=== PATIENT | female | born 1965 | race Caucasian/White ===

== ENCOUNTER 2016-07-25 12:18 | Inpatient (IN) | payer MEDICAID ==
--- NOTE | 2016-07-25 12:30 | CPEKG ---
Heart Rate: 100 RR Interval: 600 P-R Interval: 148 QRSD Interval: 86 QT Interval: 380 QTC Interval: 491 P [place]: 41 QRS [place]: 4 T Wave [place]: 45 EKG Severity - BORDERLINE ECG - EKG Impression: SINUS TACHYCARDIA EKG Impression: BORDERLINE PROLONGED QT INTERVAL Electronically Signed By: Ernesto Nolan 25-Jul-2016 13:15:12
[2016-07-25 13:05] LABS: % IMMATURE GRANULYOCYTES 0.3 % (0.0-1.1); ABSOLUTE IMMATURE GRANULOCYTES 0.03 10^3/uL (0.00-0.10); ADD DIFF? NO; ADD MORPH? NO; ADD SCAN? NO; ATYPICAL LYMPHOCYTE FLAG 10 (0-99); FRAGMENT RBC FLAG 0 (0-99); HEMATOCRIT 46.3 % (38.0-47.0); HEMOGLOBIN 15.7 g/dL (12.6-16.3); LEFT SHIFT FLG 0 (0-99); LIPEMIA HEMOLYSIS FLAG 90 (0-99); MEAN CELL HEMOGLOBIN 29.9 pg (27.9-34.1); MEAN CELL HEMOGLOBIN CONCENTR. 33.9 g/dL (32.4-36.7); MEAN CELL VOLUME 88.2 fL (81.5-99.8); MEAN PLATELET VOLUME 10.6 fL (8.7-11.7); PLATELET CLUMPS FLAG 20 (0-99); PLATELET COUNT 340 10^3/uL (150-400); RED BLOOD CELL COUNT 5.25 10^6/uL (4.18-5.33)
--- NOTE | 2016-07-25 13:09 | EDPHY ---
H & P HPI/ROS: CHIEF COMPLAINT: Syncope HISTORY OF PRESENT ILLNESS: The patient is a 51-year-old female with a history of bipolar who comes to the emergency department after a syncopal event. Neighbors called EMS because they heard a thud. Paramedics found her weak lying on the floor. Initially she was hypertensive 160/80 with a normal heart rate. She told them that she felt lightheaded since taking methamphetamine around 6:00 a.m.. She also took all of her psychiatric medications which she usually takes in the evening. This includes Remeron, Effexor, Seroquel, venlafaxine and Requip. She states that she took the normal doses. She denies having any significant medical history other than receiving CPR and being intubated after an overdose attempt several years ago. She denies any such attempt today. She denies being in any pain. She states that she does feel weak and lightheaded if she sits up. She has had Watery diarrhea for the last 3 days. she has not had any recent travel or antibiotics. She has not had a fever. She did vomit once. REVIEW OF SYSTEMS: Constitutional: denies: chills, fever, recent illness, recent injury EENTM: denies: blurred vision, double vision, nose congestion Respiratory: denies: cough, shortness of breath Cardiac: denies: See HPI Gastrointestinal/Abdominal: See HPI Genitourinary: denies: dysuria, frequency, hematuria, pain Musculoskeletal: denies: joint pain, muscle pain Skin: denies: lesions, rash, jaundice, bruising Neurological: denies: headache, numbness, paresthesia, tingling, dizziness, weakness Hematologic/Lymphatic: denies: blood clots, easy bleeding, easy bruising Immunologic/allergic: denies: HIV/AIDS, transplant EXAM: GENERAL: Lethargic, responsive, answers questions appropriately HEAD: Atraumatic, normocephalic. EYES: Pupils equal round and reactive to light, extraocular movements intact, sclera anicteric, conjunctiva are normal. ENT: TMs normal, nares patent, oropharynx clear without exudates. Moist mucous membranes. NECK: Normal range of motion, supple without lymphadenopathy or JVD. LUNGS: Breath sounds clear to auscultation bilaterally and equal. No wheezes rales or rhonchi. HEART: Diminished pulses, Regular rate and rhythm without murmurs, rubs or gallops. ABDOMEN: Soft, nontender, normoactive bowel sounds. No guarding, no rebound. No masses appreciated. BACK: No CVA tenderness, no spinal tenderness, step-offs or deformities EXTREMITIES: Normal range of motion, no pitting or edema. No clubbing or cyanosis. NEUROLOGICAL: Cranial nerves II through XII grossly intact. Normal speech, normal gait. 5/5 strength, normal movement in all extremities, normal sensation PSYCH: Normal mood, normal affect. SKIN: Warm, dry, normal turgor, no visible rashes or lesions. Source: Patient Exam Limitations: No limitations - Personal History Tetanus Vaccine Date: 2015 - Medical/Surgical History Hx Asthma: Yes Hx Chronic Respiratory Disease: No Hx Diabetes: No Hx Cardiac Disease: No Hx Renal Disease: No Hx Cirrhosis: No Hx Alcoholism: Yes Hx HIV/AIDS: No Hx Splenectomy or Spleen Trauma: No Other PMH: PMH- ASTHMA, PRE-DIABETIC, FORMER ALCOHOLIC, 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 PSH- FACIAL RECONSTRUCTION, X3 - Social History Smoking Status: Former smoker Alcohol Use: Sober Drug Use: None Constitutional: Initial Vital Signs Temperature (C) 36.9 C 07/25/16 12:35 Heart Rate 110 H 07/25/16 12:35 Respiratory Rate 16 07/25/16 12:35 Blood Pressure 64/48 L 07/25/16 12:35 O2 Sat (%) 96 07/25/16 12:35 O2 Delivery Mode Nasal Cannula O2 (L/minute) 2 Allergies/Adverse Reactions: mold Allergy (Verified 06/06/16 10:48) ENVIROMENTAL Allergy (Uncoded 06/06/16 10:48) Home Medications: Medication Instructions Recorded Esomeprazole Mag Trihydrate 40 mg PO BID PRN 06/06/16 [Nexium] Mirtazapine [Remeron] 45 mg PO HS 06/06/16 QUEtiapine FUMARATE [Seroquel 200 200 mg PO HS 06/06/16 mg (*)] Venlafaxine Xr [Effexor Xr 75MG 225 mg PO DAILY 06/06/16 (*)] rOPINIRole HCL [Requip 2mg (*)] 2 mg PO HS 06/06/16 traZODone [traZODone 150MG (*)] 300 mg PO HS 06/06/16 Medical Decision Making - Diagnostics EKG Interpretation: An EKG obtained and was read and documented in trace view. Please see trace view for full reading and report. Sinus tachycardia, no acute ischemic changes , borderline QT prolongation A repeat EKG obtained and was read and documented in trace view. Please see trace view for full reading and report. Sinus rhythm, prolonged QT Imaging: X-ray: chest x-ray was obtained. I viewed the images myself on the PACS system. My interpretation of the images is: Central line in place. The radiologist interpretation is pending. Procedures: Procedure: Central line placement. Indication: Hypotension. Verbal informed consent was obtained, with the risks explained to include but not be limited to bleeding, infection, and collapsed lung. A timeout was observed and patients identity and correct procedure location confirmed. Full maximal sterile barrier technique was uses including cap, gown, sterile gloves, large sheet, hand washing and chlorhexidine prep. The area anesthetized with 1 % lidocaine. The left subclavian was punctured with a 19 gauge finder needle, then a Cordis was placed using standard Seldinger technique. There were no complications. Blood return low pressure, dark blood. Patient tolerated procedure well. CXR results: Good line placement. X-ray was interpreted by myself. The procedure was performed by myself. Procedure: Arterial line Indication: Right femoral artery. Verbal informed consent was obtained, with the risks explained to include but not be limited to bleeding, infection. A timeout was observed and patients identity and correct procedure location confirmed. Full maximal sterile barrier technique was uses including cap, gown, sterile gloves, large sheet, hand washing and chlorhexidine prep. The area anesthetized with 1% lidocaine. The right femoral artery was punctured with a 19 gauge finder needle, then a single woman was placed using standard Seldinger technique. There were no complications. Blood return low pressure, dark blood. Patient tolerated procedure well. The procedure was performed by myself. ED Course/Re-evaluation: The patient is hypotensive and mildly lethargic. Her blood pressure for EMS was okay but here is 60/40 after multiple measurements. She admits to methamphetamine and her regular doses of medications. Seroquel could cause hypotension as it is alpha blocking and antihistaminic properties. Her other medications and tricyclics would likely cause hypertension. We immediately placed a 2nd peripheral line, a Cordis in her left subclavian vein and a art line in her right femoral artery. We did verify the low blood pressure readings. 1:10 p.m. the patient does seem to be responding to fluids. After 1 L blood pressure is currently 97/57. 1:35 p.m. the patient is responding well. After a L and have she is currently 92 /55 with a heart rate of 99. Her mental status is more alert. We will switch her fluids to the Cordis and observed. She denies being in any pain. I suspect the main source of her dehydration/hypotension/infection is the diarrhea. She states that her friend was taking care of someone who had C difficile. 2:05 p.m. I spoke with poison Control. she is . They do not see any specific interactions. Only the Requip and Seroquel could cause mild hypotension and she took these are normal doses. They suggest simply supportive care. 2:10 p.m. the patient is having mild chest pain. It resolved with Ativan. Repeat EKG shows sinus rhythm with no ischemic changes. We set up a CVP and it is measuring 10-11 in her left subclavian vein. 2:25 p.m. the patient's blood pressure is currently 114/76. She is sitting up feeling much better. Her C difficile is negative. She has not had any more diarrhea. Differential Diagnosis: Partial list of the Differential diagnosis considered include but were not limited to; overdose, medication reaction, dehydration, gastroenteritis, hypertension, sepsis, arrhythmia and although unlikely based on the history and physical exam, I also considered acute coronary disease, PE, aneurysm, dissection. 1:55 p.m. I discussed the case with Fidelia owens accept for Dr. Mendoza. They request that we consult poison Control. Critical Care Time: I spent a total of 45 minutes of critical care time in obtaining history, performing a physical exam, bedside monitoring of interventions, collecting and interpreting tests and discussion with consultants but not including time spent performing procedures. - Data Points Laboratory Results: Laboratory Results 07/25/16 12:24 07/25/16 12:24 07/25/16 07/25/16 07/25/16 13:33 13:15 12:33 WBC RBC Hgb POC Hgb 16.0 H gm/dL (12.3-15.9) Hct POC Hct 47 % (35.5-47.5) MCV MCH MCHC RDW Plt Count MPV Neut % (Auto) Lymph % (Auto) Moody % (Auto) Eos % (Auto) Baso % (Auto) Nucleat RBC Rel Count Absolute Neuts (auto) Absolute Lymphs (auto) Absolute Monos (auto) Absolute Eos (auto) Absolute Basos (auto) Absolute Nucleated RBC Immature Gran % Immature Gran # PT 13.1 SEC (12.0-15.0) INR 1.00 (0.83-1.16) APTT 23.4 SEC (23.0-38.0) D-Dimer VBG Lactic Acid 1.0 mmol/L (0.7-2.1) POC Sodium 139 mEq/L (134-144) Sodium POC Potassium 3.3 mEq/L (3.3-5.0) Potassium POC Chloride 104 mEq/L (96-108) Chloride Carbon Dioxide Anion Gap POC BUN 15 mg/dL (7-23) BUN Creatinine POC Creatinine 0.9 mg/dL (0.6-1.2) Estimated GFR Glucose POC Glucose 102 H mg/dL (70-100) Calcium Total Bilirubin Troponin I NT-Pro-B Natriuret Pep Beta HCG, Qual Stool Occult Bld Scrn C. difficile Tox (PCR) 07/25/16 12:24 WBC 10.58 H 10^3/uL (3.80-9.50) RBC 5.25 10^6/uL (4.18-5.33) Hgb 15.7 g/dL (12.6-16.3) POC Hgb Hct 46.3 % (38.0-47.0) POC Hct MCV 88.2 fL (81.5-99.8) MCH 29.9 pg (27.9-34.1) MCHC 33.9 g/dL (32.4-36.7) RDW 13.0 % (11.5-15.2) Plt Count 340 10^3/uL (150-400) MPV 10.6 fL (8.7-11.7) Neut % (Auto) 57.5 % (39.3-74.2) Lymph % (Auto) 33.6 % (15.0-45.0) Moody % (Auto) 7.8 % (4.5-13.0) Eos % (Auto) 0.2 L % (0.6-7.6) Baso % (Auto) 0.6 % (0.3-1.7) Nucleat RBC Rel Count 0.0 % (0.0-0.2) Absolute Neuts (auto) 6.08 10^3/uL (1.70-6.50) Absolute Lymphs (auto) 3.56 H 10^3/uL (1.00-3.00) Absolute Monos (auto) 0.83 H 10^3/uL (0.30-0.80) Absolute Eos (auto) 0.02 L 10^3/uL (0.03-0.40) Absolute Basos (auto) 0.06 10^3/uL (0.02-0.10) Absolute Nucleated RBC 0.00 10^3/uL (0-0.01) Immature Gran % 0.3 % (0.0-1.1) Immature Gran # 0.03 10^3/uL (0.00-0.10) PT INR APTT D-Dimer < 0.27 ug/mLFEU (0.00-0.50) VBG Lactic Acid POC Sodium Sodium 142 mEq/L (134-144) POC Potassium Potassium 3.8 mEq/L (3.5-5.2) POC Chloride Chloride 101 mEq/L (97-110) Carbon Dioxide 20 L mEq/l (22-31) Anion Gap 21 mEq/L (8-16) POC BUN BUN 14 mg/dL (7-23) Creatinine 0.9 mg/dL (0.6-1.0) POC Creatinine Estimated GFR > 60 Glucose 97 mg/dL (70-100) POC Glucose Calcium 9.8 mg/dL (8.5-10.4) Total Bilirubin 0.9 mg/dL (0.1-1.4) Troponin I < 0.012 ng/mL (0-0.034) NT-Pro-B Natriuret Pep 133 H pg/mL (0-125) Beta HCG, Qual NEGATIVE Stool Occult Bld Scrn NEGATIVE (NEGATIVE) C. difficile Tox (PCR) NEGATIVE (NEGATIVE) Medications Given: Discontinued Medications Sodium Chloride (Ns) 3,000 mls @ 0 mls/hr IV ONCE ONE PRN Reason: Wide Open Stop: 07/25/16 13:22 Last Admin: 07/25/16 12:20 Dose: 3,000 mls Lorazepam (Ativan Injection) 0.5 mg IVP EDNOW ONE Stop: 07/25/16 14:09 Last Admin: 07/25/16 14:10 Dose: 0.5 mg Point of Care Test Results: 07/25/16 12:33 POC Sodium 139 POC Potassium 3.3 POC Chloride 104 POC BUN 15 POC Creatinine 0.9 POC Glucose 102 H Departure - Departure Disposition: [facility] Inpatient Acute Clinical Impression: Methamphetamine abuse Hypotension Qualifiers: Hypotension type: unspecified hypotension type Qualifier Code: (I95.9) Hypotension, unspecified Condition: Critical
[2016-07-25 13:17] LABS: ANION GAP 21 mEq/L (8-16); CALCIUM 9.8 mg/dL (8.5-10.4); CARBON DIOXIDE 20 mEq/l (22-31); CHLORIDE 101 mEq/L (97-110); CREATININE 0.9 mg/dL (0.6-1.0); GLOMERULAR FILTRATION RATE > 60; GLUCOSE 97 mg/dL (70-100); POTASSIUM 3.8 mEq/L (3.5-5.2); SODIUM 142 mEq/L (134-144)
[2016-07-25] MEDS ORDERED: NS 3,000 ML IV ONE (13:21)
[2016-07-25 13:29] LABS: TROPONIN I < 0.012 ng/mL (0-0.034)
[2016-07-25 13:40] LABS: APTT 23.4 SEC (23.0-38.0); PROTIME(PATIENT) 13.1 SEC (12.0-15.0)
--- NOTE | 2016-07-25 13:46 | DX ---
Portable AP Supine Chest July 25, 2016, at 1:05 p.m. Clinical History: 51-year-old female with sepsis of unknown origin, presenting for follow up after ce ntral line placement. Comparison Study: None. Findings: Oxygen tubing and telemetry monitoring lead lines are present. There is a left subclavian c entral venous catheter which terminates over the medial left clavicular head at the left subclavian/i nnominate junction. There is no evidence of pneumothorax. There is mild central perihilar bronchial w all thickening with no focal infiltrate, pleural effusion, peripheral interstitial edema, or pneumoth orax. The cardiomediastinal silhouette is normal in size. The osseous structures are age-appropriate. Impression: 1. Status post placement of a left subclavian central venous catheter, which terminates at the left s ubclavian/innominate junction. 2. There is no evidence of a pneumothorax. 3. Mild perihilar bronchial wall thickening, with no focal infiltrate.
[2016-07-25 13:55] LABS: BILIRUBIN,TOTAL 0.9 mg/dL (0.1-1.4); OCCULT BLOOD FECES NEGATIVE (NEGATIVE)
[2016-07-25] MEDS ORDERED: LORazepam 2 MG/ML INJ ONE (14:01)
--- NOTE | 2016-07-25 14:05 | CPEKG ---
Heart Rate: 97 RR Interval: 619 P-R Interval: 172 QRSD Interval: 100 QT Interval: 408 QTC Interval: 519 P [place]: 48 QRS [place]: 18 T Wave [place]: 38 EKG Severity - ABNORMAL ECG - EKG Impression: SINUS RHYTHM EKG Impression: PROLONGED QT INTERVAL Electronically Signed By: Ernesto Nolan 25-Jul-2016 14:13:45
[2016-07-25] MEDS ORDERED: LORazepam 2 MG/ML INJ IVP ONE (14:08)
[2016-07-25 14:09] LABS: CLOSTRIDIUM DIFFICILE DNA NEGATIVE (NEGATIVE)
[2016-07-25] MEDS ORDERED: NS 1,000 ML IV ONE (14:38)
[2016-07-25] MEDS ORDERED: PROMETHAZINE HCL 25 MG/ML VIAL IVP PRN (14:40)
--- NOTE | 2016-07-25 15:25 | PDGENHP ---
History and Physical History and Physical: HISTORY AND PHYSICAL ADMISSION NOTE CC: Syncope HISTORY: This patient was brought in by paramedics after her neighbors heard her fall collapsing in her apartment. Paramedics apparently found her very weak on the floor unable to get up feeling very dizzy but conscious. She was actually hypertensive at 160/80 with reportedly normal heart rate and rhythm on their evaluation. However she arrived to the emergency room she was quite hypotensive with blood pressure 64/48. The patient tells me that she has been taking methamphetamine for 2 or 3 days now. She was doing this to libertarian with some friends but does not do it regularly. In fact this is her 1st methamphetamine use. She says that she has been having diarrhea and vomiting, twitching, feeling hot and cold and shivering. She has not checked her temperature. She has not noticed any blood in her stools or her emesis. She has had little to eat. Last night she used methamphetamine and because she was up most of the night guarding with that did not take her usual medications. She took those medications at 1 o'clock this afternoon and they include Effexor Seroquel and venlafaxine Requip and Remeron. She felt dizzy after this and feels that it was shortly after she took those medicines that she had her fainting spell. Here in the ER she has received some IV fluids. She now still feels somewhat weak and lightheaded but has no pain or nausea and no shortness of breath. She has not experienced any palpitations. There has been nothing like angina nothing stroke-like. Looking at her initial ER evaluation she had initial blood pressure 64/48 pulse 110 with normal respirations and temperature. She has noted by the ER physician to have normal affect and neurologic exam, however she did receive 2 doses of IV Ativan doses unclear to me at the moment if there was something missing from the note that required her to receive Ativan. She did have somewhat improved blood pressure initially after the fluid but my 1st examination she was still hypotensive in the ER. The patient states that she has been a drinker in the past but at this point only has occasional small amounts of alcohol and that she has quit smoking. She denies use of any other drugs or chemicals besides the methamphetamine. 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 She is not in touch with any of her relatives. At 1st she listed nurse and then decides that she does not want that particular friend to be her contact and says that she will be moving in with a new roommate next month and thinks that he might be her contact but she is still considering this. MEDICATIONS: Her list has not yet been reconciled by our pharmacist but appears to include Remeron venlafaxine Effexor Seroquel and Requip She denies medicine allergies PHYSICAL EXAMINATION: Vital Signs: Initially blood pressure 64/48 pulse 110 with normal respirations and temperature. After 3 L of saline I saw her with initial blood pressure of 74/48 blood pressure now is up at 98 systolic and her pulse slowed nicely Drop Wire Aligner: Sinus rhythm Examination: General: alert, oriented, good mentation Skin: warm, dry, good color, no rash HEENT: normal Neck: no mass or jvd Resps: relaxed Lungs: clear breath sounds Heart: regular, no murmur Abdomen: soft, nondistended, nontender, +BS, no mass Upper Extremities: normal Lower Extremities: no edema, warm No Bleeding or bruising Neurologic: At the moment I am unable to elicit any clonus, but she does have some periodic twitching, no current tremor; normal speech/language, normal lobby porter, no focal weakness IV site: She has a left subclavian catheter which is a cordis which looks good. He there is also a 5 in femoral arterial line which is secured well and is functioning normally LABORATORY DATA: I have reviewed all of her laboratory data from the ER, there is no significant remarkable abnormality RADIOLOGY STUDIES: Chest x-ray in the ER, my personal review of image and interpretation: No acute infiltrates, effusions, or CHF or masses the ASSESSMENT: DIAGNOSES: # SYNCOPE # PROFOUND HYPOTENSION # ACUTE METHAMPHETAMINE ABUSE ON TOP OF MULTIPLE PSYCHIATRIC MEDICATIONS # LIKELY SOME DEHYDRATION RELATED TO DIARRHEA AND VOMITING # BIPOLAR DISORDER ON MULTIPLE MEDICATIONS This acute syndrome could simply be a matter of dehydration from GI fluid losses aggravated by taking her medications which include 2 medications that can cause hypotension. However I would be concerned about the possibility of serotonin syndrome which can be caused by not only methamphetamine but her the venlafaxine and Effexor. Symptoms in her case include the twitching diarrhea vomiting and hemodynamic instability. At this point she is showing some improvement in her hemodynamics with IV fluids but will need to watch very closely. I do not think that she has any reason for us to be concerned about suicidal ideation or intention based on my interview with her. At this point will continue observation in the intensive care unit and continue hydration and careful attention to her hemodynamics. We will also watch closely for any changes signifying any neurologic decompensation. The she has a central IV catheter in place which will be helpful for central venous pressure monitoring and secure access for administering any needed fluids are medications. She also has a a femoral arterial line which is somewhat helpful with monitoring but I am not certain we actually really need that as we are getting some cough blood pressures that seem okay. As long as she remains stable enough in the blood pressure cuff seems to be working well all have the arterial line removed today. I have reviewed the patient's case in detail with Dr. Nolan
[2016-07-25] MEDS: NS 1,000 ML IV SCH (16:09)
[2016-07-25] MEDS: LORazepam 2 MG/ML INJ IVP PRN ×2 (18:25→21:57)
[2016-07-25] MEDS: QUEtiapine FUMARATE 200 MG TAB PO SCH (22:55)
[2016-07-26] MEDS: LORazepam 2 MG/ML INJ IVP PRN ×4 (01:06→16:53)
[2016-07-26] MEDS: ACETAMINOPHEN 325 MG TAB PO PRN ×2 (04:02→19:42)
[2016-07-26 05:35] LABS: % IMMATURE GRANULYOCYTES 0.4 % (0.0-1.1); ABSOLUTE IMMATURE GRANULOCYTES 0.04 10^3/uL (0.00-0.10); ADD DIFF? NO; ADD MORPH? NO; ADD SCAN? NO; ATYPICAL LYMPHOCYTE FLAG 0 (0-99); FRAGMENT RBC FLAG 0 (0-99); HEMATOCRIT 35.5 % (38.0-47.0); HEMOGLOBIN 11.9 g/dL (12.6-16.3); LEFT SHIFT FLG 0 (0-99); LIPEMIA HEMOLYSIS FLAG 80 (0-99); MEAN CELL HEMOGLOBIN 29.8 pg (27.9-34.1); MEAN CELL HEMOGLOBIN CONCENTR. 33.5 g/dL (32.4-36.7); MEAN PLATELET VOLUME 10.6 fL (8.7-11.7); PLATELET CLUMPS FLAG 0 (0-99); PLATELET COUNT 239 10^3/uL (150-400); RED BLOOD CELL COUNT 3.99 10^6/uL (4.18-5.33); RED CELL DISTRIBUTION WIDTH 13.1 % (11.5-15.2)
[2016-07-26 06:02] LABS: ALANINE AMINOTRANSFERASE 42 IU/L (9-52); ALBUMIN 3.6 g/dL (3.5-5.0); ALKALINE PHOSPHATASE 111 IU/L (38-126); ANION GAP 12 mEq/L (8-16); ASPARTATE AMINOTRANSFERASE 32 IU/L (14-46); BILIRUBIN,TOTAL 0.6 mg/dL (0.1-1.4); CALCIUM 8.3 mg/dL (8.5-10.4); CARBON DIOXIDE 22 mEq/l (22-31); CHLORIDE 112 mEq/L (97-110); CREATININE 0.7 mg/dL (0.6-1.0); GLOMERULAR FILTRATION RATE > 60; GLUCOSE 91 mg/dL (70-100); MAGNESIUM 1.8 mg/dL (1.6-2.3); POTASSIUM 3.9 mEq/L (3.5-5.2); SODIUM 146 mEq/L (134-144); TOTAL PROTEIN 6.3 g/dL (6.3-8.2)
[2016-07-26] MEDS: ENOXAPARIN 40 MG/0.4 ML SYR SC SCH (07:43)
[2016-07-26] MEDS ORDERED: PANTOPRAZOLE SODIUM 40 MG TAB PO PRN (09:00)
[2016-07-26] MEDS ORDERED: THIAMINE HCL 500 MG in NS 100 ML IV ONE (10:01)
--- NOTE | 2016-07-26 10:57 | HOSPPROG ---
Hospitalist Progress Note Assessment/Plan: #Acute encephalopathy -due to meth, Etoh and home medications -she denied taking more than normal dose of psych meds. Will have to determine if trying to hurt herself when she is more alert #Polysubstance abuse -will need counseling when more alert. Monitor for serotonin syndrome -monitor on telemetry for arrhythmia #Hypotension -due to intoxication -no e/o infection -resolved with IVFs #Bipolar d/o: -holding home meds with AMS #Diarrhea -due to intoxication -C diff #Diet: regular #DVT px: #Disp: warrants admission given risk of arrhythmia, falls and subsequent injuries. Telemetry Subjective: confused this morning Objective: Vital Signs Temp Pulse Resp BP Pulse Ox 36.6 C 80 12 102/81 H 92 07/26/16 08:00 07/26/16 10:00 07/26/16 10:00 07/26/16 10:00 07/26/16 10:00 Laboratory Results 07/26/16 05:25 07/26/16 05:25 07/25/16 07/26/16 07/27/16 05:59 05:59 05:59 Intake Total 6068 Output Total 900 Balance 5168 PT 13.1 SEC (12.0-15.0) 07/25/16 13:33 INR 1.00 (0.83-1.16) 07/25/16 13:33 - Physical Exam Constitutional: no apparent distress, other (slumped over in chair) Eyes: PERRL Ears, Nose, Mouth, Throat: dry mucous membranes Cardiovascular: regular rate and rhythym Respiratory: no respiratory distress Gastrointestinal: normoactive bowel sounds, soft, non-tender abdomen Genitourinary: no bladder fullness Skin: warm Musculoskeletal: full muscle strength Neurologic: CN II-XII Intact, other (alert to self, month. Tremulous) Psychiatric: encephalopathic ICD10 Worksheet Patient Problems: Problems Problem Status Diagnosed Hypotension Acute Methamphetamine abuse Acute
[2016-07-26 20:23] LABS: COLOR YELLOW; LEUKOCYTE ESTERASE,URINE NEGATIVE (NEGATIVE); NITRITE,URINE NEGATIVE (NEGATIVE)
[2016-07-26] MEDS: QUEtiapine FUMARATE 200 MG TAB PO SCH (21:24)
[2016-07-26] MEDS: NS 1,000 ML IV SCH (21:24)
[2016-07-27] MEDS: NS 1,000 ML IV SCH (02:50)
[2016-07-27 04:47] LABS: % IMMATURE GRANULYOCYTES 0.2 % (0.0-1.1); ABSOLUTE IMMATURE GRANULOCYTES 0.01 10^3/uL (0.00-0.10); ADD DIFF? NO; ADD MORPH? NO; ADD SCAN? NO; ATYPICAL LYMPHOCYTE FLAG 20 (0-99); FRAGMENT RBC FLAG 0 (0-99); HEMATOCRIT 33.1 % (38.0-47.0); HEMOGLOBIN 10.7 g/dL (12.6-16.3); LEFT SHIFT FLG 0 (0-99); LIPEMIA HEMOLYSIS FLAG 80 (0-99); MEAN CELL HEMOGLOBIN 29.6 pg (27.9-34.1); MEAN CELL HEMOGLOBIN CONCENTR. 32.3 g/dL (32.4-36.7); MEAN CELL VOLUME 91.4 fL (81.5-99.8); MEAN PLATELET VOLUME 10.7 fL (8.7-11.7); PLATELET CLUMPS FLAG 0 (0-99); PLATELET COUNT 210 10^3/uL (150-400); RED BLOOD CELL COUNT 3.62 10^6/uL (4.18-5.33); RED CELL DISTRIBUTION WIDTH 13.2 % (11.5-15.2)
[2016-07-27 05:05] LABS: ANION GAP 8 mEq/L (8-16); CARBON DIOXIDE 27 mEq/l (22-31); CHLORIDE 108 mEq/L (97-110); CREATININE 0.6 mg/dL (0.6-1.0); GLOMERULAR FILTRATION RATE > 60; GLUCOSE 91 mg/dL (70-100); MAGNESIUM 1.8 mg/dL (1.6-2.3); SODIUM 143 mEq/L (134-144)
[2016-07-27] MEDS: THIAMINE HCL 500 MG in NS 100 ML IV SCH (08:03)
[2016-07-27] MEDS: ENOXAPARIN 40 MG/0.4 ML SYR SC SCH ×2 (08:04→20:53)
[2016-07-27] MEDS: LORazepam 2 MG/ML INJ IVP PRN (10:09)
[2016-07-27] MEDS: LORazepam 1 MG TAB PO PRN (16:04)
--- NOTE | 2016-07-27 16:24 | HOSPPROG ---
Hospitalist Progress Note Assessment/Plan: #Acute encephalopathy -improving -showing signs of w/d today -due to meth, Etoh and home medications #Polysubstance abuse -will need counseling when more alert. Monitor for serotonin syndrome -monitor on telemetry for arrhythmia #Etoh w/d: -HTN, tachy, tremor today -CIWa -she does not have medical decision capacity to leave AMA #Acclerated HTN -due to w/d #Bipolar d/o: -holding home meds with AMS #Diarrhea -due to intoxication -C diff negatived #Diet: regular #DVT px: #Disp: warrants admission for Etoh w/d, cont PRN BZs Subjective: still consfused Objective: Vital Signs Temp Pulse Resp BP Pulse Ox 36.8 C 100 18 140/110 H 92 07/27/16 15:23 07/27/16 15:23 07/27/16 15:23 07/27/16 15:23 07/27/16 15:23 Laboratory Results 07/27/16 04:25 07/27/16 04:25 07/26/16 07/27/16 07/28/16 05:59 05:59 05:59 Intake Total 6068 1591 480 Output Total 900 1000 200 Balance 5168 591 280 PT 13.1 SEC (12.0-15.0) 07/25/16 13:33 INR 1.00 (0.83-1.16) 07/25/16 13:33 - Physical Exam Constitutional: no apparent distress, uncomfortable Eyes: PERRL Ears, Nose, Mouth, Throat: moist mucous membranes Cardiovascular: tachycardia Respiratory: no respiratory distress, no rales or rhonchi Gastrointestinal: normoactive bowel sounds, soft, non-tender abdomen Skin: warm Musculoskeletal: full muscle strength Neurologic: AAOx3 (alert to self, place not date completely. Mild tremors), CN II-XII Intact Psychiatric: encephalopathic ICD10 Worksheet Patient Problems: Problems Problem Status Diagnosed Hypotension Acute Methamphetamine abuse Acute
[2016-07-27] MEDS: NICOTINE 14 MG/24 HR PATCH TD SCH (19:36)
[2016-07-27 20:39] VITALS: RESP 16
[2016-07-27] MEDS: ACETAMINOPHEN 325 MG TAB PO PRN (20:52)
[2016-07-27] MEDS: QUEtiapine FUMARATE 200 MG TAB PO SCH (20:52)
[2016-07-28 05:06] LABS: % IMMATURE GRANULYOCYTES 0.2 % (0.0-1.1); ABSOLUTE IMMATURE GRANULOCYTES 0.01 10^3/uL (0.00-0.10); ADD DIFF? NO; ADD MORPH? NO; ADD SCAN? NO; ATYPICAL LYMPHOCYTE FLAG 20 (0-99); FRAGMENT RBC FLAG 0 (0-99); HEMATOCRIT 37.6 % (38.0-47.0); HEMOGLOBIN 12.6 g/dL (12.6-16.3); LEFT SHIFT FLG 0 (0-99); LIPEMIA HEMOLYSIS FLAG 80 (0-99); MEAN CELL HEMOGLOBIN CONCENTR. 33.5 g/dL (32.4-36.7); MEAN CELL VOLUME 89.5 fL (81.5-99.8); MEAN PLATELET VOLUME 10.4 fL (8.7-11.7); PLATELET CLUMPS FLAG 0 (0-99); PLATELET COUNT 249 10^3/uL (150-400); RED CELL DISTRIBUTION WIDTH 13.1 % (11.5-15.2)
[2016-07-28 05:33] LABS: ANION GAP 15 mEq/L (8-16); CARBON DIOXIDE 24 mEq/l (22-31); CHLORIDE 103 mEq/L (97-110); CREATININE 0.7 mg/dL (0.6-1.0); GLOMERULAR FILTRATION RATE > 60; GLUCOSE 110 mg/dL (70-100); POTASSIUM 3.7 mEq/L (3.5-5.2); SODIUM 142 mEq/L (134-144)
[2016-07-28 08:36] VITALS: BP 129/97; PULSE 88; TEMP 98.8; O2SAT 94
[2016-07-28] MEDS: ENOXAPARIN 40 MG/0.4 ML SYR SC SCH (08:36)
[2016-07-28] MEDS: THIAMINE HCL 500 MG in NS 100 ML IV SCH (08:36)
[2016-07-28] MEDS: NICOTINE 14 MG/24 HR PATCH TD SCH (09:08)
[2016-07-28] MEDS: ACETAMINOPHEN 325 MG TAB PO PRN (09:08)
[2016-07-28] MEDS: LORazepam 1 MG TAB PO PRN (09:08)
[2016-07-28] MEDS ORDERED: VENLAFAXINE XR 75 MG CAP PO SCH (11:00)
[2016-07-28] MEDS ORDERED: IBUPROFEN 600 MG TAB PO PRN (11:17)
--- NOTE | 2016-07-28 17:01 | GDS ---
[f rep st] DISCHARGE SUMMARY DISCHARGE DIAGNOSES: 1. Methamphetamine abuse. 2. Accelerated hypertension, then hypotension. 3. Metabolic encephalopathy. 4. Polysubstance abuse. 5. Bipolar disorder. HISTORY: Yin Rios is a 51-year-old female with a history of bipolar disorder, on stable medicat ions for the last 4 years. She states that her life however, had become very hectic and busy, and ho ping to get more energy she started doing methamphetamines for a few days. She was subsequently foun d down in her apartment after being heard by neighbors collapsing to the floor. Upon arrival, EMS fo und her hypertensive 160/80 and upon arrival to the emergency room, she became hypotensive with blood pressure 64/48. She was treated supportively and her clinical situation improved to medical stability. On the day of discharge, she is alert and oriented x3, and anxious to be discharged. She laments the bad choice s he made regarding the methamphetamine abuse, and states this is not a chronic problem and does not in tend to do it any further. Her other bipolar medications had been stable for 4 years without any is sues until this drug abuse interaction. DISCHARGE MEDICATIONS: Please see computer record for full detailed list. There are no new medicati ons given at time of hospital discharge. ADDITIONAL DISCHARGE INSTRUCTIONS: Avoid substance abuse. Greater than 30 minutes' time was spent arranging discharge. Patient seen and examined by me on the day of discharge. /[id number]/MODL
[2016-07-28] MEDS ORDERED: NON-FORMULARY NEW DRUG (Mirtazapine [Remeron] 45 MG) PO SCH (21:00)
[2016-07-28] MEDS ORDERED: MIRTAZAPINE 15 MG TAB PO SCH (21:00)
[2016-07-29] MEDS ORDERED: THIAMINE HCL 100 MG TAB PO SCH (09:00)
== END 2016-07-28 12:40 | disposition home or self-care (01) | DRG 896 ==
LOC: EDUNIT# → F2N 14:40 → OBSVTOIN 14:40 → F3E 07-26 20:56
PROVIDERS: ADMIT Internal Medicine; ATTEND Internal Medicine
DX: F15.10 Other stimulant abuse, uncomplicated (principal); G93.41 Metabolic encephalopathy; I95.9 Hypotension, unspecified; E86.0 Dehydration; R19.7 Diarrhea, unspecified; J45.909 Unspecified asthma, uncomplicated; R73.03 Prediabetes; F31.9 Bipolar disorder, unspecified; I10 Essential (primary) hypertension; Z87.891 Personal history of nicotine dependence
CPT/HCPCS: 82947-QW; 96374; J1650; J3411

== ENCOUNTER 2017-12-11 00:56 | Emergency (ER) | payer MEDICAID ==
[2017-12-11 01:25] LABS: PLATELET COUNT 307 10^3/uL (150-400)
--- NOTE | 2017-12-11 01:34 | EDPHY ---
H & P Stated Complaint: M1 hold/SI Time Seen by Provider: 12/11/17 01:29 HPI/ROS: Chief Complaint: Suicidal, alcohol intoxication HPI: 52-year-old woman was standing outside of the [employer] screaming that she went to kill herself. Patient admits to drinking lots of alcohol this morning. She is clinically intoxicated. At this time patient states she is not recall the incident. She currently denies being suicidal. Does admit to drinking alcohol. No fevers or chills. No cough. Complaining of some mild pain left side of her neck for which she is being treated for an infection. ROS: 10 point Review of Systems is negative except as noted in the HPI. PMH: Denies Social History: Positive smoking, positive alcohol, occasional meth amphetamine use Family History: non-contributory Physical Exam: Gen: Awake, Alert, slurred speech, smells of alcohol HEENT: Nose: no rhinorrhea Eyes: PERRLA, EOMI Mouth: Moist mucosa Neck: Supple, no JVD Chest: nontender, lungs clear to auscultation Heart: S1, S2 normal, no murmur Abd: Soft, non-tender, no guarding Back: no CVA tenderness, no midline tenderness Ext: no edema, non-tender Skin: no rash Neuro: CN II-XII intact, Sensation grossly intact, Strength 5/5 in bilateral upper and lower extremities - Personal History LMP (Females 10-55): Unknown Current Tetanus/Diphtheria Vaccine: Yes Current Tetanus Diphtheria and Acellular Pertussis (TDAP): Yes Tetanus Vaccine Date: 2015 - Medical/Surgical History Hx Asthma: Yes Hx Chronic Respiratory Disease: No Hx Diabetes: No Hx Cardiac Disease: No Hx Renal Disease: No Hx Cirrhosis: No Hx Alcoholism: Yes Hx HIV/AIDS: No Hx Splenectomy or Spleen Trauma: No Other PMH: PMH- ASTHMA, PRE-DIABETIC, FORMER ALCOHOLIC, 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 PSH- FACIAL RECONSTRUCTION, X3 - Social History Smoking Status: Former smoker Constitutional: Initial Vital Signs Temperature (C) 36.7 C 12/11/17 01:17 Heart Rate 83 12/11/17 01:17 Respiratory Rate 18 12/11/17 01:17 Blood Pressure 103/67 12/11/17 01:17 O2 Sat (%) 97 05/17/18 01:17 O2 Delivery Mode Room Air Allergies/Adverse Reactions: mold Allergy (Verified 12/11/17 01:16) ENVIROMENTAL Allergy (Uncoded 12/11/17 01:16) Home Medications: Medication Instructions Recorded Esomeprazole Mag Trihydrate 40 mg PO BID PRN 06/06/16 [Nexium] Mirtazapine [Remeron] 45 mg PO HS 06/06/16 QUEtiapine FUMARATE [Seroquel 200 200 mg PO HS 06/06/16 mg (*)] Venlafaxine Xr [Effexor Xr 75MG 225 mg PO DAILY 06/06/16 (*)] rOPINIRole HCL [Requip 2mg (*)] 2 mg PO HS 06/06/16 traZODone [traZODone 150MG (*)] 300 mg PO HS 06/06/16 Medical Decision Making ED Course/Re-evaluation: Patient is up and ambulating without difficulty. She is luis for safety. She does not have recollection of events earlier this evening. Sober friend who is here says that she has a history of a traumatic brain injury. Patient is not suicidal. Patient's friend is willing to take her home. I have lifted the mental health hold. - Data Points Laboratory Results: Laboratory Results 12/11/17 01:10 12/11/17 01:10 12/11/17 12/11/17 01:10 01:10 WBC 6.55 10^3/uL 10^3/uL (3.80-9.50) RBC 5.10 10^6/uL 10^6/uL (4.18-5.33) Hgb 15.2 g/dL g/dL (12.6-16.3) Hct 46.4 % % (38.0-47.0) MCV 91.0 fL fL (81.5-99.8) MCH 29.8 pg pg (27.9-34.1) MCHC 32.8 g/dL g/dL (32.4-36.7) RDW 12.7 % % (11.5-15.2) Plt Count 307 10^3/uL 10^3/uL (150-400) MPV 10.6 fL fL (8.7-11.7) Neut % (Auto) 44.7 % % (39.3-74.2) Lymph % (Auto) 45.6 % H % (15.0-45.0) [place] % (Auto) 6.3 % % (4.5-13.0) Eos % (Auto) 2.9 % % (0.6-7.6) Baso % (Auto) 0.3 % % (0.3-1.7) Nucleat RBC Rel Count 0.0 % % (0.0-0.2) Absolute Neuts (auto) 2.93 10^3/uL 10^3/uL (1.70-6.50) Absolute Lymphs (auto) 2.99 10^3/uL 10^3/uL (1.00-3.00) Absolute Monos (auto) 0.41 10^3/uL 10^3/uL (0.30-0.80) Absolute Eos (auto) 0.19 10^3/uL 10^3/uL (0.03-0.40) Absolute Basos (auto) 0.02 10^3/uL 10^3/uL (0.02-0.10) Absolute Nucleated RBC 0.00 10^3/uL 10^3/uL (0-0.01) Immature Gran % 0.2 % % (0.0-1.1) Immature Gran # 0.01 10^3/uL 10^3/uL (0.00-0.10) Sodium 148 mEq/L H mEq/L (135-145) Potassium 4.0 mEq/L mEq/L (3.3-5.0) Chloride 105 mEq/L mEq/L (97-110) Carbon Dioxide 26 mEq/l mEq/l (22-31) Anion Gap 17 mEq/L H mEq/L (8-16) BUN 18 mg/dL mg/dL (7-23) Creatinine 0.9 mg/dL mg/dL (0.6-1.0) Estimated GFR > 60 Glucose 84 mg/dL mg/dL (70-100) Calcium 9.4 mg/dL mg/dL (8.5-10.4) Ethyl Alcohol 198 mg/dL H mg/dL (0-10) Departure - Departure Disposition: Home, Routine, Self-Care Clinical Impression: Alcohol intoxication Condition: Good Instructions: Alcohol Intoxication (ED) Referrals: NONE *PRIMARY CARE P,. [Primary Care Provider] - As per Instructions
[2017-12-11 04:52] VITALS: BP 98/66
== END 2017-12-11 05:03 | disposition home or self-care (01) ==
LOC: EDUNIT#
DX: F10.129 Alcohol abuse with intoxication, unspecified (principal); J45.909 Unspecified asthma, uncomplicated; Z87.891 Personal history of nicotine dependence
CPT/HCPCS: 80305; G0480